=== PATIENT | male | born 1935 | race Caucasian/White ===

== ENCOUNTER → 2016-09-13 | Day surgery (SDC) | payer MEDICARE, BC ==
[~2016-09-13] MED LIST: ACETAMINOPHEN PO; AMANTADINE100 M1 PO; ASPIRIN81 M2 PO; ASPIRIN81 MG PO; ATROPINE S0.1 MG/1 M PO; CARBIDOPA-LEVO1 EAC2 PO; CARBIDOPA-LEVO1 EAC5 PO; CELEXA20 MG PO; DESYREL50 MG PO; DONEPEZIL HCL10 MG PO; FLEXERIL PO; HM SUPER VITA400 MCG PO; HYDROCODON-ACE1 EAC7 PO; LASIX20 MG PO; METOPROLOL SUCC50 MG PO; MIRAPEX1 MG PO; MONTELUKAST SOD10 MG PO; MULTI VITAMIN1 EACH PO; PERCOCET5/325 PO; SYMMETREL100 M1 PO; VICODIN 5/500 T1 TAB PO; VITAMIN D-32000 UNI2 PO
--- NOTE | ~2016-09-13 | OR ---
Unit #: [id number] #: [id number] Patient: OLAMIDE SHEN [id number] [address] [place], [place] [address] [id number] MR#: [id number] NAME: OLAMIDE SHEN ROOM: Date of Procedure: 09/13/2016 Admission Date: 09/13/2016 Surgeon: Roberto Lebron M.D. : 1935 Attending Physician: Roberto Lebron M.D. Primary Care Physician: Olu Arreguin M.D. OPERATIVE REPORT PREOPERATIVE DIAGNOSES Postfusion, post-laminectomy, degenerative facet disease, spondylolisthesis, back pain. POSTOPERATIVE DIAGNOSES Postfusion, post-laminectomy, degenerative facet disease, spondylolisthesis, back pain. PROCEDURE PERFORMED Bilateral L2-L3 and L3-L4 facet injection with intravenous sedation and fluoroscopic guidance for needle localization. INDICATIONS FOR PROCEDURE The patient is an 81-year-old male with previously mentioned diagnosis. He had significant worsening back pain. Workup demonstrated progressive worsening facet disease at the L2-L3 and L3-L4 level. This was the most significant pathology. This is consistent with his physical examination and complaints. The patient has failed to settle with conservative measures, so the plan is for trial of facet injections bilaterally at the L2-L3 and L3-L4 levels. DESCRIPTION OF PROCEDURE The patient was placed in a prone position. Standard monitors were applied. Sterile prep and drape of the lumbar area was performed. The skin then overlying the left-sided L2-L3 and L3-L4 facet joints were localized with 1% lidocaine. At both of these levels, a 22-gauge Quincke point needle was advanced with fluoroscopic guidance to bring the needle tip to within the edge of the respective facet joint at the L2-L3 and L3-L4 levels. The patient did not complain of pain or paresthesia. After confirming proper positioning, a dose of 1 mL of a mixture of 80 mg of Depo-Medrol and 3 mL of 0.25% bupivacaine was used, 0.5 mL within the joint and 0.5 mL just outside the joint. The needles were flushed and removed. The exact same procedure was then repeated on the right at the L2-L3 and L3-L4 levels using fluoroscopic guidance. Again after confirming proper positioning of the needle tips with fluoroscopy, a dose again of 1 mL of a mixture of the previously mentioned injectate was used, 0.5 mL within the joint and 0.5 mL just outside. The needles were flushed and removed. The patient tolerated the entire procedure otherwise well and was discharged to the recovery room in stable condition. Dictated by... Unit #: [id number] #: [id number] Patient: HERMELINDAOLAMIDE Tamera Khan/mickey TD: 09/13/2016 22:29 JOB #: [id number] OPERATIVE REPORT Page 1 of 1 X Roberto Lebron MD X PROCEDURE OPERATIVE NOTE
== END | disposition home or self-care (01) ==
LOC: CCSC 06:58
DX: M96.1 Postlaminectomy syndrome, not elsewhere classified (principal); M47.26 Other spondylosis with radiculopathy, lumbar region; M43.16 Spondylolisthesis, lumbar region; I10 Essential (primary) hypertension; G20 Parkinson's disease; F32.9 Major depressive disorder, single episode, unspecified; Z79.2 Long term (current) use of antibiotics; Z79.82 Long term (current) use of aspirin; Z79.891 Long term (current) use of opiate analgesic; Z79.899 Other long term (current) drug therapy; Z98.1 Arthrodesis status
CPT/HCPCS: J1040; J2250

== ENCOUNTER 2016-10-11 15:22 | Observation (INO) | payer MEDICARE, BC ==
--- NOTE | ~2016-10-11 | CO ---
Unit #: [id number] #: [id number] Patient: OLAMIDE SHEN [id number] [facility] [address] [address] [place], [place] [address] [id number] MR#: [id number] NAME: OLAMIDE SHEN ROOM: 567 Age: 81 Sex: M Admission Date: 10/11/2016 : 1935 Attending Physician: Manuel Aldridge M.D. Primary Care Physician: Olu Arreguin M.D. Requesting Physician: Rosemarie Chapman M.D. Consultation Date: 10/12/2016 CONSULTATION REPORT REASON FOR CONSULTATION Hallucinations. PATIENT IDENTIFICATION This is an 81-year-old, right-handed, white male who is evaluated in room [address] [facility]. SOURCE OF INFORMATION The patient, his and daughter, also records from [facility] and, on top of that, evaluation done by Dr. Chapman. PROBLEM LIST 1. He has history of Parkinson disease, probably some cognitive changes. 2. Paroxysmal atrial fibrillation. 3. Coronary artery disease. 4. Benign essential hypertension. 5. Degenerative disk disease. 6. Parkinson disease, probably idiopathic. 7. Chronic bilateral low back pain. 8. Restless leg syndrome. 9. Spondylosis. 10. Hyperlipidemia. 11. Bone fusion in spine. 12. Spinal spur surgery. 13. Occipital nerve block. 14. Transurethral resection of the prostate. 15. Right rotator cuff surgery. HISTORY OF PRESENT ILLNESS This is a very pleasant 81-year-old gentleman who actually was admitted because he has been having some hallucinations. He actually sees things, and these are visual hallucinations, and he is aware that these are abnormalities. At times he gets angry. He has history of Parkinson disease, and it looks like over the last about 3 to 4 months things are getting worse. What I found out, as per the patient, is that he was started on Mirapex 1 mg 3 times daily around a few months back, and also he is on high dose of Sinemet 25/100 mg 1.5 tablets 3 times daily and Sinemet 50/200 mg long acting 3 times daily. He is also taking opiates. He is also taking Celexa and trazodone. He does have hallucinations, but he is fine right now. Because of his visual component, he was evaluated at [facility] and had full evaluation, including MRI. There were no lesions or other abnormalities. There are no seizures. Unit #: [id number] #: [id number] Patient: OLAMIDE SHEN He is awake and alert, doing fine right now. Nothing suggesting OIL SPECULATOR infection or fever or other infections. It looks like he is compliant with his medications, although he sleeps a lot, and he sleeps at the wrong times. He sometimes is awake through the night and then sleeps in the morning for several hours. PAST MEDICAL HISTORY As discussed above. PAST SURGICAL HISTORY As discussed above. ALLERGIES None. HOME MEDICATIONS 1. Amantadine 100 mg b.i.d. 2. Lipitor 20 mg. 3. Aspirin 81 mg. 4. Atropine 1% ophthalmic solution. 5. Carbidopa/levodopa 50/200 mg 1 tablet t.i.d. I saw two different doses; one is b.i.d., the other is t.i.d. It looks like he is taking t.i.d. 6. Carbidopa/levodopa 25/100 mg, regular, 1.5 tablets t.i.d. 7. Celexa 20 mg 2 tablets by mouth daily. It looks like he is only taking 1 instead of 2. 8. Donepezil 10 mg 1 tablet by mouth nightly. 9. Folbic p.o. 1 tablet daily. 10. Furosemide 20 mg by mouth daily. 11. Hydrocodone 5/325 mg 1 tablet by mouth q.8 hours. 12. Metoprolol XL 50 mg 1 tablet daily. 13. Singulair 10 mg 1 tablet by mouth nightly. 14. Mirapex 1 mg t.i.d. 15. Trazodone 50 mg p.o. at bedtime. FAMILY HISTORY No neurologic issues. No strokes or degenerative conditions. SOCIAL HISTORY He is . He lives with his , and they have been for 60 years. No alcohol, tobacco or drug use. REVIEW OF SYSTEMS Mostly as discussed in the history of present illness. The biggest issue is hallucinations. He did have some sleep problems. CONSTITUTIONAL: No fever, chills, rigors or sweats. No recent weight issues. HEENT: No headaches. No double vision, earaches, runny nose or sore throat. He had some visual hallucinations initially. No neck problems. CARDIOVASCULAR: No chest pain, clubbing, cyanosis, orthopnea or palpitations. PULMONARY: No shortness of air, cough or expectorations. GASTROINTESTINAL: No nausea, vomiting, diarrhea or constipation. GENITOURINARY: No genitourinary symptoms. EXTREMITIES: No extremity problems except for the tremors. He has chronic back pain. PSYCHIATRIC: Issue was hallucinations. Unit #: [id number] #: [id number] Patient: OLAMIDE SHEN NEUROLOGIC: Issue is Parkinson disease and hallucinations. HEMATOLOGIC: No hematologic problems. DERMATOLOGIC: No dermatologic problems. ENDOCRINE: No endocrine problems. PHYSICAL EXAMINATION VITAL SIGNS: Temperature is 97.7, pulse 50, respirations 18, blood pressure 133/54, O2 sats were 95% to 100%, weight of 200 pounds, BMI was 29. NEUROLOGIC EXAMINATION MENTAL STATUS: The patient is awake. He is alert. He is oriented fully. He can name, and he can follow commands. No right/left confusion. No finger agnosia. CRANIAL NERVES: Examination demonstrates full marks of vision to confrontation. Eye movements are conjugate. I did not see any ptosis. I did not see any nystagmus. Extraocular movements are intact. Sensation of the face and scalp are normal. Strength and muscles of facial expression are normal. Hearing seemed to be intact bilaterally. Tongue was midline. Uvula is midline. Palate elevations are normal. Head turning and shoulder shrugs were unremarkable. MOTOR: Examination demonstrates normal bulk and tone. Strength was essentially 5/5; there may be a little bit of increased tone and cogwheeling on the right side. SENSORY EXAMINATION: Intact for soft touch and pain sensation. No extinction was seen. Romberg was not evaluated. GAIT: Examination was deferred. REFLEXES: I could not elicit any reflexes. COORDINATION: He does have some resting tremor on the right side and some minimal cogwheeling on the right side. Slow rshgza-cn-bxvs-[id number]-finger. DIAGNOSTIC STUDIES Labs and imaging studies reviewed as available. LABS: BUN is 24, creatinine 0.9. CBC was showing H and H of 12.1 and 36.3, white count of 8.4, platelet count of 196. Urinalysis really did not show anything major. IMPRESSION This is a very interesting 81-year-old gentleman who likely has side effect of the medication. He had cognitive changes to begin with. I really do not see, but the possibility of Lewy body dementia is remotely there. I, personally, think this is medication side effect. He is taking a lot of medications, which can have cognitive changes, and probably the top of them are Sinemet dosing and Mirapex. I would advise that, since he sees a neurologist and I am not going to be following him, the dose changes are made in consultation with Dr. Madrigal, and they are going to call her. He is fine right now. There is nothing suggesting infection or seizures or brain lesions based on the recent evaluation, so observe and see how things go. Call me for any other questions, issues or concerns. I have talked with the patient, his and the daughter in detail and explained to them different ways of management and the pathophysiology of Parkinson disease, and they appreciated that. Call me with any other questions, issues or concerns. Unit #: [id number] #: [id number] Patient: OLAMIDE SHEN Dictated by... Tamera Dubon/hernando TD: 10/12/2016 13:28 JOB #: [id number] CONSULTATION REPORT Page 1 of 1 X Lisa Garcia MD CONSULTATION REPORT
--- NOTE | ~2016-10-11 | EKG ---
PATIENT: OLAMIDE SHEN UNIT #: [id number] Ventricular Rate: 60 BPM Atrial Rate: 60 BPM P-R Interval: 228 ms QRS Duration: 80 ms Q-T Interval: 412 ms QTC Calculation(Bezet): 412 ms P [place]: 83 degrees Calculated R [place]: 3 degrees Calculated T [place]: 32 degrees Diagnosis Line: Diagnosis Line: Sinus rhythm with 1st degree A-V block Diagnosis Line: Otherwise normal ECG Diagnosis Line: No previous ECGs available Diagnosis Line: Confirmed by GREY PHAN MD ([id number]) on 10/12/2016 Diagnosis Line: 7:36:59 AM INTERPRETING MD: SYLVESTER OVIEDO
--- NOTE | ~2016-10-11 | CT71 ---
[facility] A Service of [facility] & [facility] RADIOLOGY TEXT RESULTS PATIENT: OLAMIDE SHEN LOCATION: [facility] 567-01 : 35 UNIT #: [id number] AGE: [address]: Manuel Aldridge MD SEX: M ORDER DR: [id number] [facility] [address]. [place], [place] [address] [id number] I MR#: [id number] Acc #: [id number] NAME: OLAMIDE SHEN : 1935 SEX: M STUDY DATE/TIME: 10/11/2016 17:31 UNIT: CEDOF ROOM: [id number] STUDY DESCRIPTION: CT Head Wo Contrast Attending Physician: Rosemarie Chapman M.D. Ordering Physician: Jorge Vallecillo M.D. Primary Care Physician: Olu Arreguin M.D. MEDICAL IMAGING REPORT This report is preliminary unless electronic signature is present EXAM Head CT without contrast, 10/11/2016 HISTORY Disoriented, hallucinations, difficulty concentrating with multiple falls for the past 3 days. History of Parkinson's disease. This CT exam was performed with one or more of the following radiation dose reduction techniques: automatic exposure control, adjustment of mA and/or kV according to patient size, and iterative reconstruction. FINDINGS Axial images of the brain obtained without contrast show generalized atrophy. There is no evidence of mass effect, hemorrhage, or edema and no midline shift is seen. No acute changes are noted. IMPRESSION Atrophy; otherwise, normal CT of the brain. Dictated by... Teto Jackson M.D. THIS IS AN ELECTRONICALLY VERIFIED REPORT Teto Jackson M.D. at 10/12/2016 8:30 AM ALICIA/solis TD: 10/11/2016 21:07 JOB #: [id number] MEDICAL IMAGING REPORT Page 1 of 1 COPY
--- NOTE | ~2016-10-11 | CR72 ---
[facility] A Service of [facility] RADIOLOGY TEXT RESULTS PATIENT: OLAMIDE SHEN LOCATION: [facility] : 35 UNIT #: [id number] AGE: [address]: Jorge Vallecillo MD SEX: M ORDER DR: [id number] [facility] [address] [place], [place] [address] [id number] E MR#: [id number] Acc #: [id number] NAME: OLAMIDE SHEN : 1935 SEX: M STUDY DATE/TIME: 10/11/2016 16:55 UNIT: [facility] ROOM: STUDY DESCRIPTION: CR Chest Single View Portable Attending Physician: Jorge Vallecillo M.D. Ordering Physician: Jorge Vallecillo M.D. Primary Care Physician: Olu Arreguin M.D. MEDICAL IMAGING REPORT This report is preliminary unless electronic signature is present EXAM Portable chest 10/11/2016 at 16:55 hours HISTORY An 81-year-old man with chest pain today, shortness of air, dizziness and hallucinations. COMPARISON Chest CT 12/09/2015 and chest x-ray 11/19/2003 FINDINGS Portable upright chest demonstrates heart size within normal limits. There is a mildly tortuous aorta. The lungs are clear and there are no effusions. IMPRESSION Low lung volumes with no acute cardiopulmonary findings. Dictated by... Татьяна Craven M.D. THIS IS AN ELECTRONICALLY VERIFIED REPORT Татьяна Craven M.D. at 10/11/2016 8:03 PM Carlos TD: 10/11/2016 19:40 JOB #: [id number] MEDICAL IMAGING REPORT Page 1 of 1 COPY
--- NOTE | ~2016-10-11 | DS ---
Unit #: [id number] #: [id number] Patient: OLAMIDE SHEN [id number] [facility]. [place], [place] [address] [id number] I MR#: [id number] NAME: OLAMIDE SHEN ROOM: 567 Age: 81 Sex: M Admission Date: 10/11/2016 : 1935 Discharge Date: 10/12/2016 Attending Physician: Manuel Aldridge M.D. Primary Care Physician: Olu Arreguin M.D. DISCHARGE SUMMARY SHORT STAY SUMMARY HOSPITAL COURSE This 81-year-old male was admitted to the hospital with hallucinations and altered mental status. Details are as per admission H and P. The patient was admitted in the hospital, had a CT scan of the head done, which did not reveal any acute findings except atrophy. The patient had a chest x-ray done, which did reveal low lung volumes. There was no acute cardiopulmonary abnormality. Urinalysis was also negative. Urine tox screen was positive for opiates. Patient was recently admitted at [facility] with similar complaint and had a whole workup with CT scan, MRI and echocardiogram, which were normal, as per family. The patient is currently feeling much better and does not have any hallucinations. He is accompanied by his and daughter who state that he is back to his normal self. I discussed with the patient's family in detail, who are not sure if the patient is taking his medications as prescribed. thinks that the patient does not take his Parkinson medications at regular intervals. Therefore, I believe the patient may be taking his medications improperly. I advised family to monitor the patient's medication intake. The patient's family feels comfortable taking the patient home. Therefore, we will have the patient go home after seen by Dr. Garcia. We will also request PT, OT to see the patient. RECOMMENDATIONS ON DISCHARGE 1. Condition is stable. 2. Activity is as tolerated. 3. Patient is advised to continuation home medications, which are as per admission H and P. 4. Patient is advised to follow up with primary care physician in 1 week and follow up with Dr. Madrigal, his movement disorder doctor, in 1-2 weeks. 5. The plan was discussed in detail with the patient and family, the patient's and daughter, and they showed complete understanding. 6. They were advised to call primary care physician or go to the ER if the patient's condition changes. 7. We will arrange home health regarding home safety assessment and PT, OT. 8. Please make note that the patient has history of chronic pain syndrome and sees Dr. Carlitos Lebron and is taking hydrocodone 5 mg q.6 hours p.r.n. for that. The patient's family was advised to keep an eye on it to make sure that the patient is not taking more than that. Unit #: [id number] #: [id number] Patient: OLAMIDE SHEN Dictated by... Tamera Cain/hernando TD: 10/12/2016 12:20 JOB #: [id number] DISCHARGE SUMMARY Page 1 of 1 X Manuel Aldridge MD X DISCHARGE SUMMARY
--- NOTE | ~2016-10-11 | HP ---
Unit #: [id number] #: [id number] Patient: OLAMIDE SHENUAL [id number] [address] [place], [place] [address] [id number] E MR#: [id number] NAME: OLAMIDE SHEN ROOM: Age: 81 Sex: M Admission Date: 10/11/2016 : 1935 Attending Physician: Jorge Vallecillo M.D. Primary Care Physician: Olu Arreguin M.D. HISTORY AND PHYSICAL CHIEF COMPLAINT Altered mental status. HISTORY OF PRESENT ILLNESS The patient is an 81-year-old male with a history of paroxysmal atrial fibrillation, coronary artery disease, and Parkinson disease, brought to the emergency room complaining of altered mental status with visual hallucinations. The patient was recently discharged from [facility] with a similar complaint, with the whole workup with a CT, MRI, and echocardiogram being normal. The patient was thought to be having hallucinations secondary to the Parkinson disease medications. The patient stated that he has not been sleeping and has been having constant movements. The patient had workup here with a CT of the head being negative and is being admitted for neurology evaluation by the ER physician. PAST MEDICAL HISTORY 1. Paroxysmal atrial fibrillation. 2. Coronary artery disease. 3. Benign essential hypertension. 4. Degenerative disc disease. 5. Parkinson disease. 6. Chronic bilateral low back pain. 7. Restless leg syndrome. 8. Spondylosis. 9. Hyperlipidemia. PAST SURGICAL HISTORY 1. Bone fusion in spine. 2. Spinal spurs. 3. Occipital nerves. 4. Transurethral resection of the prostate. 5. Right rotator cuff. HOME MEDICATIONS 1. Aspirin. 2. Atropine ophthalmic solution. 3. Carbidopa 50-200 mg 1 tab twice daily. 4. Celexa. 5. Aricept. 6. Lasix. 7. Hydrocodone. 8. Toprol-XL. 9. Singulair. Unit #: [id number] #: [id number] Patient: OLAMIDE SHEN 10. Mirapex. 11. Trazodone. ALLERGIES No known drug allergies. SOCIAL HISTORY No history of smoking, alcohol, or any illicit drug abuse. FAMILY HISTORY Reviewed and none. REVIEW OF SYSTEMS A 14-point review of systems was performed and only pertinent positive findings are described above. The remaining are negative. PHYSICAL EXAMINATION GENERAL: Patient is lying in bed not in acute distress with a labile mood. VITAL SIGNS: Temperature 98.4, pulse 58, respirations 16, blood pressure 123/59, and saturating 97% on room air. HEENT: Head atraumatic, normocephalic. Pupils equal, round, and reactive to light and accommodation. Extraocular movements are intact. NECK: Supple. LUNGS: Decreased air entry at the bases. HEART: Irregular rate and rhythm. ABDOMEN: Soft. Positive bowel sounds. EXTREMITIES: No cyanosis, no clubbing. NEUROLOGIC: Alert, awake, and oriented. No gross focal motor deficit. Minimal intermittent movements of the extremities. DIAGNOSTIC STUDIES LABORATORY: WBC 8.3, hemoglobin 12.1, hematocrit 36.8, and platelets 227,000. INR is 1. Glucose 92, sodium 138, potassium 4.2, chloride 103, bicarb 29, glucose 104, BUN 29, creatinine 1.2, AST 27, ALT 10, alkaline phosphatase 46, and albumin 4.3. Urinalysis shows negative leukocyte esterase and negative nitrites. Troponin less than 0.05. ASSESSMENT 1. Altered mental status. 2. Hallucinations. 3. Parkinson disease. PLAN Admit the patient to observation. Will give hydration with IV fluids and will have a Neurology consult to adjust the medications for the Parkinson disease. Will hold the [place], check urine toxicology, and repeat the labs again in the morning. Dictated by Tamera Marshall TD: 10/11/2016 20:19 JOB #: [id number] Unit #: [id number] #: [id number] Patient: OLAMIDE SHEN EMANUAL HISTORY AND PHYSICAL Page 1 of 1 X LULU RANGEL MD HISTORY AND PHYSICAL
[~2016-10-11 15:22] MED LIST changes: -ACETAMINOPHEN PO; -AMANTADINE100 M1 PO; -ASPIRIN81 MG PO; -ATROPINE S0.1 MG/1 M PO; -HM SUPER VITA400 MCG PO; -LASIX20 MG PO; -MIRAPEX1 MG PO; -MULTI VITAMIN1 EACH PO
[2016-10-11 16:07] LABS: BASOPHIL% 0.3 % (0-2.5); EOSINOPHIL# 0.2 X10e3 (0-0.7); EOSINOPHIL% 1.8 % (0.0-7.0); HEMATOCRIT 36.8 % (38.0-50.0); HEMOGLOBIN 12.1 gm/dL (13.0-16.0); LYMPHOCYTE# 2.3 X10e3 (1.0-3.5); LYMPHOCYTE% 27.8 % (17.0-45.0); MEAN CORPUSCULAR HEMOGLOBIN 30.9 PG (28-34); MEAN CORPUSCULAR HGB CONC 32.9 g/dL (30-36); MEAN PLATELET VOLUME 8.4 FL (6.5-11.5); MONOCYTE# 0.6 X10e3 (0-1.0); MONOCYTE% 7.3 % (3.0-12.0); NEUTROPHIL# 5.2 X10e3 (1.5-7.1); NEUTROPHIL% 62.8 % (40-75); PLATELET COUNT 227 X10e3 (140-420); RED BLOOD COUNT 3.91 X10e (3.90-5.60); RED CELL DISTRIBUTION WIDTH 13.8 % (11.0-15.5); WHITE BLOOD COUNT 8.3 X10e3 (4.0-10.5)
[2016-10-11 16:10] LABS: DIFF IND NO
[2016-10-11 16:20] LABS: PARTIAL THROMBOPLASTIN TIME 26.5 SECONDS (23.5-31.3); PROTHROMBIN TIME (PATIENT) 10.7 SECONDS (9.6-11.5)
[2016-10-11 16:33] LABS: ALBUMIN SERUM 4.3 g/dL (3.5-5.0); BILIRUBIN, DIRECT 0.1 mg/dL (0.0-0.2); BILIRUBIN,INDIRECT 0.9 mg/dL (0.0-0.9); BUN/CREATININE RATIO 24.16; CALCIUM SERUM 9.6 mg/dL (8.4-10.2); CREATININE SERUM 1.2 mg/dL (0.6-1.4); GLOM FILT RATE Estimated 56.4 mL/min (>60); POTASSIUM 4.2 mmol/L (3.5-5.1); PROTEIN TOTAL SERUM 7.1 g/dL (6.0-8.3)
[2016-10-11 17:15] LABS: URINE SOURCE CLEAN CATCH
[2016-10-11 17:19] LABS: URINE APPEARANCE CLEAR; URINE BILIRUBIN NEG (NEG); URINE BLOOD NEG (NEG); URINE COLOR YELLOW; URINE GLUCOSE NEG (NEG); URINE KETONE NEG (NEG); URINE LEUKOCYTE ESTERASE NEG (NEG); URINE NITRATE NEG (NEG); URINE PH 6.5 (5-8); URINE PROTEIN NEG (NEG); URINE SPECIFIC GRAVITY 1.015 (1.003-1.035); URINE UROBILINOGEN 0.2 MG/DL (NEG)
[2016-10-11 17:26] LABS: CULTURE INDICATED? NO
[2016-10-11 17:42] LABS: POC - CKMB 5.2 ng/mL (0.0-7.9); POC - TROPONIN <0.05 ng/mL (<=0.05)
[2016-10-11] MEDS ORDERED: HYDROCODON-ACE1 EAC7 PO (19:06)
[2016-10-11] MEDS ORDERED: AMANTADINE100 M1 PO (19:06)
[2016-10-11] MEDS ORDERED: ASPIRIN81 MG PO (19:07)
[2016-10-11] MEDS ORDERED: CARBIDOPA-LEVO1 EAC5 PO (19:08)
[2016-10-11] MEDS ORDERED: ATROPINE S0.1 MG/1 M PO (19:08)
[2016-10-11] MEDS ORDERED: CELEXA20 MG PO (19:09)
[2016-10-11] MEDS ORDERED: DONEPEZIL HCL10 MG PO (19:09)
[2016-10-11] MEDS ORDERED: HM SUPER VITA400 MCG PO (19:11)
[2016-10-11] MEDS ORDERED: MONTELUKAST SOD10 MG PO (19:11)
[2016-10-11] MEDS ORDERED: METOPROLOL SUCC50 MG PO (19:11)
[2016-10-11] MEDS ORDERED: LASIX20 MG PO (19:11)
[2016-10-11] MEDS ORDERED: MIRAPEX1 MG PO (19:12)
[2016-10-11] MEDS ORDERED: DESYREL50 MG PO (19:12)
[2016-10-11] MEDS ORDERED: CARBIDOPA-LEVO1 EAC2 PO (19:23)
[2016-10-11 19:34] LABS: AMPHETAMINE NEG (NEG); BARBITURATES NEG (NEG); BENZODIAZEPINES NEG (NEG); COCAINE NEG (NEG); MARIJUANA NEG (NEG); OPIATES POS (NEG); TRICYCLIC ANTIDEPRESSANTS NEG (NEG); U METHADONE NEG (NEG)
[2016-10-12 05:49] LABS: BASOPHIL% 0.4 % (0-2.5); EOSINOPHIL# 0.2 X10e3 (0-0.7); EOSINOPHIL% 2.4 % (0.0-7.0); HEMATOCRIT 36.3 % (38.0-50.0); HEMOGLOBIN 12.1 gm/dL (13.0-16.0); LYMPHOCYTE# 2.3 X10e3 (1.0-3.5); LYMPHOCYTE% 27.2 % (17.0-45.0); MEAN CELL VOLUME 93.7 FL (83-96); MEAN CORPUSCULAR HEMOGLOBIN 31.1 PG (28-34); MEAN CORPUSCULAR HGB CONC 33.2 g/dL (30-36); MEAN PLATELET VOLUME 8.4 FL (6.5-11.5); MONOCYTE# 0.7 X10e3 (0-1.0); MONOCYTE% 8.4 % (3.0-12.0); NEUTROPHIL# 5.2 X10e3 (1.5-7.1); NEUTROPHIL% 61.6 % (40-75); PLATELET COUNT 196 X10e3 (140-420); RED BLOOD COUNT 3.87 X10e (3.90-5.60); RED CELL DISTRIBUTION WIDTH 13.5 % (11.0-15.5); WHITE BLOOD COUNT 8.4 X10e3 (4.0-10.5)
[2016-10-12 05:53] LABS: DIFF IND NO
[2016-10-12 07:54] LABS: BUN/CREATININE RATIO 26.66; CALCIUM SERUM 8.9 mg/dL (8.4-10.2); CREATININE SERUM 0.9 mg/dL (0.6-1.4); GLOM FILT RATE Estimated 79.8 mL/min (>60)
[2016-10-12] MEDS ORDERED: ACETAMINOPHEN PO (14:07)
[2016-10-12] MEDS ORDERED: MULTI VITAMIN1 EACH PO (14:18)
== END 2016-10-12 15:06 | disposition home or self-care (01) ==
LOC: CED 15:22 → CEDOF 19:00 → CED 19:04 → CEDOF 10-12 00:24 → C5C 10-12 00:24
PROVIDERS: Emergency Medicine; Internal Medicine
DX: R44.3 Hallucinations, unspecified (principal); R41.82 Altered mental status, unspecified; G20 Parkinson's disease; I48.0 Paroxysmal atrial fibrillation; I25.10 Atherosclerotic heart disease of native coronary artery without angina pectoris; E78.5 Hyperlipidemia, unspecified; F32.9 Major depressive disorder, single episode, unspecified; G25.81 Restless legs syndrome; Z79.82 Long term (current) use of aspirin
CPT/HCPCS: 36415; 70450; 71010; 80048; 80076; 80307; 81003; 82553; 82947; 84484; 85025; 85610; 85730; 93005; 94760; 96372; 97161; 97165; 99285; G0378; G8978-GP; G8979-GP; G8980-GP; G8987-GO; G8988-GO; G8989-GO; J1650

== ENCOUNTER 2017-01-02 15:37 | Emergency (ER) | payer OTHER, MEDICARE, BC ==
[~2017-01-02] VITALS: Ht 175.3 cm; Wt 95.2 kg
--- NOTE | ~2017-01-02 | CR117 ---
[facility] A Service of [facility] RADIOLOGY TEXT RESULTS PATIENT: OLAMIDE SHEN LOCATION: [facility] : 35 UNIT #: [id number] AGE: [address]: Linda Leal SEX: M ORDER DR: [id number] [facility]. [place], [place] [address] [id number] E MR#: [id number] Acc #: [id number] NAME: OLAMIDE SHEN : 1935 SEX: M STUDY DATE/TIME: 01/02/2017 16:35 UNIT: [facility] ROOM: STUDY DESCRIPTION: CR Finger 2 View Thumb Rt Attending Physician: Linda Leal Pa-C Ordering Physician: Linda Leal Pa-C Primary Care Physician: Olu Arreguin M.D. MEDICAL IMAGING REPORT This report is preliminary unless electronic signature is present EXAM Right first finger, 3 views. COMPARISON None INDICATION 81-year-old male with right thumb bleeding and pain after puncture wound of the left thumb this morning. FINDINGS There is a tiny somewhat linear-appearing radiopacity measuring up to 2 mm seen overlapping the soft tissues of the thumb at the level of the tuft of the distal phalanx. This was seen on multiple views and is most consistent with a retained foreign body, immediately deep to the skin. There is degenerative change at the first metatarsophalangeal joint and the first interphalangeal joint. No evidence of acute fracture. Bones are anatomically aligned. IMPRESSION 1. Metallic-appearing linear 2 mm foreign body within the superficial soft tissues of the palmar surface of the distal thumb at the level of the tuft of the first distal phalanx. This measures 2 mm. 2. No acute fracture or dislocation. Degenerative changes as described in the body of the report. Dictated by... Issac Kirkland M.D. THIS IS AN ELECTRONICALLY VERIFIED REPORT Issac Kirkland M.D. at 01/08/2017 9:35 PM [facility] A Service of [facility] RADIOLOGY TEXT RESULTS PATIENT: OLAMIDE SHEN LOCATION: [facility] : 35 UNIT #: [id number] AGE: [address]: Linda Leal SEX: M ORDER DR: Kerrie TD: 01/02/2017 21:31 JOB #: [id number] MEDICAL IMAGING REPORT Page 1 of 1 COPY
[~2017-01-02 15:37] MED LIST changes: +ACETAMINOPHEN PO; +AMANTADINE100 M1 PO; +ASPIRIN81 MG PO; +ATROPINE S0.1 MG/1 M PO; +HM SUPER VITA400 MCG PO; +LASIX20 MG PO; +MIRAPEX1 MG PO; +MULTI VITAMIN1 EACH PO
== END 2017-01-02 17:27 | disposition home or self-care (01) ==
LOC: CFTX 15:37 → CED 15:37 → CFTX 16:49
DX: S61.011A Laceration without foreign body of right thumb without damage to nail, initial encounter (principal); Z79.82 Long term (current) use of aspirin; Z79.899 Other long term (current) drug therapy; W25.XXXA Contact with sharp glass, initial encounter; Y92.009 Unspecified place in unspecified non-institutional (private) residence as the place of occurrence of the external cause
CPT/HCPCS: 12002; 73140; 90471; 90715; 99283